=== PATIENT | male | born 1975 | race Two or more races ===

== ENCOUNTER 2020-11-12 10:06 | Emergency (ER) | payer OTHER, SELFPAY ==
[2020-11-12 10:17] VITALS: BP 140/89; PULSE 89; RESP 18; TEMP 36.6; O2SAT 100; BMI 39.6
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
== END 2020-11-12 11:03 | disposition home or self-care (01) ==
PROVIDERS: Emergency Provider Emergency Medicine; PCP Internal Medicine
DX: M25.511 Pain in right shoulder (principal); Z79.899 Other long term (current) drug therapy
CPT/HCPCS: 99283